=== PATIENT | female | born 1975 | race Caucasian/White ===

== ENCOUNTER 2025-06-12 15:14 | Emergency (ER) | payer MEDICAID, SELFPAY ==
[2025-06-12] VITALS (15 sets, daily range): BP systolic 111–129; BP diastolic 66–91; PULSE 72–99; RESP 16–18; TEMP 36.6–36.9; O2SAT 93–100
--- NOTE | 2025-06-12 15:50 | ED_ITS ---
HPI - Recheck/Abnormal Lab/Rx 2 General: Chief Complaint: Recheck/Abnormal Lab/Rx Stated Complaint: Abnormal Labs Time Seen by Provider: 06/12/25 15:31 Source: patient Mode of arrival: ambulatory Limitations: no limitations History of Present Illness: Patient is a nice 50-year-old female presents to ED today with a complaint of fatigue and being told that her hemoglobin was low. Patient states she has been dealing with issues with anemia since 2017. She states in 2022 she was hospitalized with a hemoglobin of 2.6. She states she had multiple tests performed at that time including EGD/colonoscopy. Patient states following her hospitalization she was doing okay until recently when she began noticing fatigue thus prompting her to establish with a primary care provider. They reportedly did a POC hemoglobin today and it was 6.0 and she was told to come to the emergency department. Apart from the fatigue she has noticed some issues with dizziness with abrupt positional changes. She appears pale upon arrival. Patient is not complaining of any abdominal pain. She has not had any episodes of hematemesis or complaining of dark or tarry stools. She does not feel like her menstrual cycles are overly heavy-she does report they are starting to become irregular and attributes this to the change (menopause). Patient is not sure if she has ever followed up with a real estate agency licensee. She does take iron supplementation at home. complaint: abnormal lab Initial visit (ago): hour(s) Initial visit for: other (fatigue) Returns today for: called because of abnormal lab/test Context: called for abnormal lab result Associated symptoms: other (fatigue) Related Data Allergies Allergy/AdvReac Type Severity Reaction Status Date / Time codeine Allergy Unknown Verified 06/12/25 15:24 Latex, Natural Rubber Allergy Unknown Verified 06/12/25 15:24 Review of Systems 2 Const: Reports: fatigue; Denies: fever(s), chills, body aches or malaise Eyes: Denies: change in vision Card: Denies: chest pain Resp: Denies: dyspnea GI: Denies: abdominal pain, hematochezia or melena : Denies: hematuria Musc: Denies: neck pain, back pain, extremity pain or joint swelling Neuro: Reports: dizziness (with abrupt positional changes); Denies: headache(s), numbness in extremities, weakness in extremities, sensory changes, confusion or behavioral changes Physical Exam 2 Const: COMMON NORMALS: no acute distress, average body habitus, patient oriented x3, no limitations, healthy appearing, alert and well nourished G ENERAL APPEARANCE: cooperative and other (appears pale) O RIENTATION/CONSCIOUSNESS: Yes awake, Yes oriented to person, Yes oriented to place and Yes oriented to time Resp: COMMON NORMALS: normal respiratory effort and clear to auscultation bilaterally AUSCULTATION: clear to auscultation bilaterally Cardio: COMMON NORMALS: regular rate and regular rhythm RATE: regular rate RHYTHM: regular rhythm GI: COMMON NORMALS: Normal to inspection, nondistended, normoactive bowel sounds present, Soft to palpation and non-tender PALPATION: Yes Soft to palpation Neuro: BRITANY COMA SCALE: document GCS findings Britany coma scale eye opening: Spontaneous Britany coma scale verbal response: Orientated Cassel coma scale motor response: Obey commands Britany coma scale total score: 15 COMMON NORMALS: patient oriented x3 and gait normal SENSORIUM/ORIENTATION: Yes alert, Yes oriented to person, Yes oriented to place and Yes oriented to time Skin: COMMON NORMALS: no rashes or lesions noted GENERAL SKIN EXAM: no rashes or lesions noted Course 2 Vital Signs: Vital signs: Vital Signs Temperature 98.4 F 06/12/25 18:30 Pulse Rate 72 06/12/25 18:30 Respiratory Rate 16 06/12/25 18:30 Blood Pressure 118/87 06/12/25 18:30 Pulse Oximetry 99 06/12/25 18:30 Oxygen Delivery Me thod Room Air 06/12/25 18:00 MDM - Recheck/Abnormal Lab/Rx Medical Decision Making Patient is a nice 50-year-old female with chronic history of anemia with hemoglobins down to 2.6 at one point. She states she has not followed up with primary care in quite some time. She recently began feeling fatigued so figured she would establish with a primary care provider and get her hemoglobin checked. This was reportedly found to be 6 today thus prompting them to recommend she come to the emergency department for blood transfusion. Patient here, appears pale, but in no acute distress. Her vital signs are stable. Blood work showing a hemoglobin of 5.9 with indices suggesting microcytic anemia. Patient will be transfused and then allowed discharge. I will have her follow-up with hematology. Return ED precautions discussed. She was not having any signs or symptoms consistent with acute GI blood loss. Medical Records I reviewed the patient's medical records. Lab Data I reviewed the patient's lab results. 06/12/25 15:48 06/12/25 15:48 Laboratory Results WBC 5.12 10^3/uL (3.29-11.43) 06/12/25 15:48 RBC 2.89 10^6/uL (3.85-5.65) L 06/12/25 15:48 Hgb 5.90 g/dL (11.27-16.99) L* 06/12/25 15:48 Hct 20.1 % (36-47) L* 06/12/25 15:48 MCV 69.6 fl (85-98) L 06/12/25 15:48 MCH 20.4 pg (27-33) L 06/12/25 15:48 MCHC 29.4 g/dL (30-55) L 06/12/25 15:48 RDW 20.3 % (12.1-15.1) H 06/12/25 15:48 Plt Count 185 10^3/cmm (157-399) 06/12/25 15:48 MPV 10.5 fL (7.4-10.4) H 06/12/25 15:48 Neut % (Auto) 64.4 % 06/12/25 15:48 Lymph % (Auto) 25.6 % 06/12/25 15:48 Avery % (Auto) 5.5 % 06/12/25 15:48 Eos % (Auto) 3.7 % 06/12/25 15:48 Baso % (Auto) 0.6 % 06/12/25 15:48 Neut # (Auto) 3.30 10^3/uL (1.8-7.7) 06/12/25 15:48 Lymph # (Auto) 1.3 10^3/uL (0.8-4.8) 06/12/25 15:48 Avery # (Auto) 0.3 10^3/uL (0.2-0.9) 06/12/25 15:48 Eos # (Auto) 0.2 10^3/uL (0.0-0.8) 06/12/25 15:48 Baso # (Auto) 0.0 10^3/uL (0.0-0.1) 06/12/25 15:48 Nucleated RBC % (auto) 0 % 06/12/25 15:48 Nucleated RBCs # 0.0 /100WBC 06/12/25 15:48 Sodium 137 mmol/L (136-145) 06/12/25 15:48 Potassium 3.7 mmol/L (3.5-5.1) 06/12/25 15:48 Chloride 102 mmol/L (98-107) 06/12/25 15:48 Carbon Dioxide 24 mmol/L (22-29) 06/12/25 15:48 Anion Gap 14.7 (5-19) 06/12/25 15:48 BUN 13 mg/dL (6-20) 06/12/25 15:48 Creatinine 0.5 mg/dL (0.5-0.9) 06/12/25 15:48 GFR Calculation 131.7 mL/min (90-130) H 06/12/25 15:48 Glucose 96 mg/dL (65-115) 06/12/25 15:48 Calculated Osmolality 284 mOsm/kg (285-295) L 06/12/25 15:48 Calcium 9.3 mg/dL (8.5-10.5) 06/12/25 15:48 Total Bilirubin 0.2 mg/dL (0.15-1.2) 06/12/25 15:48 AST 16 U/L (0-32) 06/12/25 15:48 ALT 21 U/L (0-33) 06/12/25 15:48 Alkaline Phosphatase 76 U/L (35-105) 06/12/25 15:48 Total Protein 6.7 g/dL (6.6-8.7) 06/12/25 15:48 Albumin 4.1 g/dL (3.5-5.2) 06/12/25 15:48 Globulin 2.6 g/dL (1.3-4.6) 06/12/25 15:48 Blood Type A Positive 06/12/25 15:48 Rho(D) Type Rh positive 06/12/25 15:48 Antibody Screen Negative 06/12/25 15:48 Crossmatch See Detail 06/12/25 15:48 No radiology studies performed this visit Discharge Plan Discharge Patient Disposition: Home Clinical Impression: Anemia Qualifiers: Anemia type: unspecified type Qualified Code(s): D64.9 - Anemia, unspecified Condition: Stable Discharge Orders: Discharge ED (Routine); Ordered 06/12/25 Ordered By: Amparo Banks Patient Instructions: Anemia, Anemia (ED), Patient Portal & Amos Instructions Activity Restrictions/Additional Instructions: As we discussed, you were given a transfusion here in the emergency department prior to discharge. We will place a case management referral to get you set up with hematology as an outpatient. You can continue to follow-up with your primary care office. Print Language: Faroese Coding Level of Care Code ED Paraffin Machine Operator for Meenu De Oliveira
[2025-06-12 16:10] LABS: Mean Corpuscular HGB Conc 29.4 g/dL (30-55); Mean Corpuscular Hemoglobin 20.4 pg (27-33); Mean Corpuscular Volume 69.6 fl (85-98); Nucleated Red Blood Cells % 0 %; Platelet Count 185 10^3/cmm (157-399); Red Blood Count 2.89 10^6/uL (3.85-5.65); White Blood Count 5.12 10^3/uL (3.29-11.43)
[2025-06-12 16:19] LABS: Hematocrit 20.1 % (36-47); Hemoglobin 5.90 g/dL (11.27-16.99); Slide Review Slide Review Perform
[2025-06-12 16:29] LABS: Alanine Aminotransferase 21 U/L (0-33); Albumin Level 4.1 g/dL (3.5-5.2); Alkaline Phosphatase 76 U/L (35-105); Anion Gap 14.7 (5-19); Aspartate Amino Transferase 16 U/L (0-32); Blood Urea Nitrogen 13 mg/dL (6-20); Calcium 9.3 mg/dL (8.5-10.5); Carbon Dioxide 24 mmol/L (22-29); Chloride 102 mmol/L (98-107); Globulin 2.6 g/dL (1.3-4.6); Glucose 96 mg/dL (65-115); Osmolality Calculated 284 mOsm/kg (285-295); Potassium 3.7 mmol/L (3.5-5.1); Sodium 137 mmol/L (136-145); Total Protein 6.7 g/dL (6.6-8.7)
--- NOTE | 2025-06-12 18:40 | ECG_ITS ---
[facility] Test Date: 2025-06-12 Pat Name: Quentin Fu Department: Room: Gender: Female Binder Layer: : 1975 Requested By: Amparo Banks Order Number: [id number] Reading MD: Measurements Intervals [place] Rate: 65 P: 33 AR: 141 QRS: 28 QRSD: 89 T: 39 QT: 399 QTc: 416 Interpretive Statements SINUS RHYTHM POSSIBLE RIGHT VENTRICULAR CONDUCTION DELAY [RSR (QR) IN V1/V2] No previous ECG available for comparison [email or web address]
== END 2025-06-12 22:44 | disposition home or self-care (01) ==
PROVIDERS: Emergency Provider Physician Assistant
DX: D64.9 Anemia, unspecified (principal)
CPT/HCPCS: 36415; 36430; 80053; 85025; 86850; 86900; 86920; 93005; 99284; P9016

== ENCOUNTER 2025-06-28 14:37 | Oncology outpatient (recurring) (ONCR) | payer MEDICAID, SELFPAY | END 2025-06-29 23:59 | disposition home or self-care (01) | PROVIDERS: Visit Provider Internal Medicine | DX: D50.9 Iron deficiency anemia, unspecified (principal); Z87.891 Personal history of nicotine dependence | CPT/HCPCS: 99204 ==

== ENCOUNTER 2025-07-26 20:42 | Emergency (ER) | payer MEDICAID, SELFPAY ==
--- OUTSIDE RECORDS SUMMARY | 2025-07-18 14:05 | XMS_ITS | Encounter Summary ---
Author Organization [facility] Address [address] [place] [address] Care Team Providers Care Line Worker Name Role Phone Unavailable Primary Care Provider Unavailabl e Encounter Details Date Type Department Care Team (Latest Contact Info) Description 07/18/2025 2:05 PM BEAN SNIPPER - 07/18/2025 11:59 PM BEAN SNIPPER Hospital Encounter [facility] [employer] Laboratory Services [address] [facility] [address] [place] [address] Segundo Jaime MD [address] [place] [address] Discharge Disposition: Home or Self Care Social History Tobacco Use Types Packs/Day Years Used Date Smoking Tobacco: Former Cigarettes Comments Unknown Sex and Gender Information Value Date Recorded Sex Assigned at Not on file Legal Sex Female 10:59 AM CDT Gender Identity Not on file Sexual Orientation Not on file documented as of this encounter Medications at Time of Discharge collagen, bovine, 100 % Powder Apply to affected area. documented as of this encounter Plan of Treatment Upcoming Encounters Date Type Department Care Team (Late st Contact Info) Description 10/10/2025 11:15 AM BEAN SNIPPER Appointment [facility] [employer] Laboratory Services [address] [place] [address] 10/17/2025 11:20 AM BEAN SNIPPER Office Visit [facility] Cancer and Hematology [place] [address] [facility] [address] [place] [address] Segundo Jaime MD [address] [place] [phone] documented as of this encounter Procedures Procedure Name Priority Date/Time Associated Diagnosis Comments CBC WITH DIFFERENTIAL Stat 07/18/2025 2:09 PM BEAN SNIPPER Chronic anemia COMPREHENSIVE METABOLIC PANEL Stat 07/18/2025 2:09 PM BEAN SNIPPER Chronic anemia documented in this encounter Results * COMPREHENSIVE METABOLIC PANEL (07/18/2025 2:09 PM BEAN SNIPPER) SODIUM 138 136 - 145 mmol/L 07/18/2025 2:41 PM [facility] POTASSIUM 3.7 3.5 - 5.1 mmol/L 07/18/2025 2:41 PM [facility] [place] CHLORIDE 103 98 - 107 mmol/L 07/18/2025 2:41 PM [facility] CO2 25 22 - 29 mmol/L 07/18/2025 2:41 PM [facility] [place] CALCIUM 9.4 8.6 - 10.0 mg/dL 07/18/2025 2:41 PM [facility] [place] BUN 12 6 - 20 mg/dL 07/18/2025 2:41 PM [facility] [place] CREATININE 0.65 0.51 - 0.95 mg/dL 07/18/2025 2:41 PM [facility] [place] GLUCOSE 92 74 - 99 mg/dL 07/18/2025 2:41 PM [facility] [place] TOTAL PROTEIN 6.9 6.4 - 8.3 g/dL 07/18/2025 2:41 PM [facility] [place] ALBUMIN 4.2 3.5 - 5.2 g/dL 07/18/2025 2:41 PM [facility] [place] BILIRUBIN TOTAL 0.3 0.0 - 1.0 mg/dL 07/18/2025 2:41 PM [facility] [place] ALKALINE PHOSPHATASE 75 35 - 104 U/L 07/18/2025 2:41 PM [facility] AST 19 <=33 U/L 07/18/2025 2:41 PM [facility] [place] ALT 20 <=33 U/L 07/18/2025 2:41 PM [facility] GFR >60 >=60 mL/min/1.7 3 sq meter 07/18/2025 2:41 PM [facility] Comment:eGFR calculated with 2020 CKD-EPI equation. Vegetarian diet, extremely high or low muscle mass, and may affect results. Cystatin C with Glomerular Filtration Rate is a suitable alternative for these patients. ANION GAP 10 9 - 20 mmol/L 07/18/2025 2:41 PM [facility] Blood Venipuncture / Unknown 07/18/2025 2:09 PM BEAN SNIPPER 07/18/2025 2:11 PM BEAN SNIPPER Segundo Jaime MD CHEMISTRY ORDERABLES Final Re sult [facility] CLIA# [id number] [address] [place] [address] * (ABNORMAL) CBC WITH DIFFERENTIAL (07/18/2025 2:09 PM BEAN SNIPPER) WBC 5.2 4.5 - 11.0 K/uL 07/18/2025 2:15 PM [facility] RBC 3.74(L) 4.20 - 5.40 M/uL 07/18/2025 2:15 PM [facility] HEMOGLOBIN 8.9(L) 12.0 - 16.0 g/dL 07/18/2025 2:15 PM [facility] HEMATOCRIT 29.6(L) 36.0 - 46.0 % 07/18/2025 2:15 PM [facility] MCV 79.1(L) 82.0 - 100.0 fL 07/18/2025 2:15 PM [facility] MCH 23.8(L) 27.0 - 34.0 pg 07/18/2025 2:15 PM [facility] [place] MCHC 30.1(L) 31.0 - 37.0 g/dL 07/18/2025 2:15 PM [facility] [place] RDW 24.9(H) 11.0 - 14.5 % 07/18/2025 2:15 PM [facility] [place] RDW-STDEV 69.7(H) 37.0 - 54.0 fL 07/18/2025 2:15 PM [facility] [place] PLATELETS 223 140 - 440 K/uL 07/18/2025 2:15 PM [facility] [place] MPV 9.7 8.9 - 12.8 fL 07/18/2025 2:15 PM [facility] [place] NEUTROPHILS 58 42 - 75 % 07/18/2025 2:15 PM [facility] [place] LYMPHOCYTES 32 24 - 44 % 07/18/2025 2:15 PM [facility] [place] MONOCYTES 5 2 - 10 % 07/18/2025 2:15 PM [facility] [place] EOSINOPHILS 4 0 - 7 % 07/18/2025 2:15 PM [facility] [place] BASOPHILS 1 0 - 1 % 07/18/2025 2:15 PM [facility] [place] IMMATURE GRANULOCYTES 1 0 - 2 % 07/18/2025 2:15 PM [facility] [place] NEUTROPHIL ABSOLUTE 2.99 1.40 - 6.50 K/uL 07/18/2025 2:15 PM [facility] [place] LYMPHOCYTE ABSOLUTE 1.63 1.20 - 4.00 K/uL 07/18/2025 2:15 PM BEAN SNIPPER [facility] [place] MONOCYTE ABSOLUTE 0.27 0.10 - 0.60 K/uL 07/18/2025 2:15 PM [facility] [place] EOSINOPHIL ABSOLUTE 0.21 0.00 - 0.70 K/uL 07/18/2025 2:15 PM [facility] [place] BASOPHILS ABSOLUTE 0.04 0.00 - 0.20 K/uL 07/18/2025 2:15 PM BEAN SNIPPER [facility] [place] IMMATURE GRANULOCYTES ABSOLUTE 0.03 0.00 - 0.10 K/uL 07/18/2025 2:15 PM BEAN SNIPPER [facility] [place] Blood Venipuncture / Unknown 07/18/2025 2:09 PM BEAN SNIPPER 07/18/2025 2:11 PM BEAN SNIPPER Segundo Jaime MD HEMATOLOGY ORDERABLES Final R esult [facility] [place] CLIA# [id number] [address] [place] [address] documented in this encounter Visit Diagnoses Diagnosis Chronic anemia Anemia, unspecified documented in this encounter
[2025-07-26] VITALS (34 sets, daily range): BP systolic 109–142; BP diastolic 66–81; PULSE 77–97; RESP 10–20; TEMP 36.6–36.9; O2SAT 97–100; BMI 33.5
--- OUTSIDE RECORDS SUMMARY | 2025-07-26 20:54 | XMS_ITS | Encounter Summary ---
Author Organization [facility] Address [address] [place] [address] Care Team Providers Care Nuclear Powerplant Supervisor Name Role Phone Unavailable Primary Care Provider Unavailabl e Encounter Details Date Type Department Care Team (Late st Contact Info) Description 07/24/2025 External Device Data STL ABSTRACTION Provider, Abstract NO ADDRESS ON FILE Social History Tobacco Use Types Packs/Day Years Used Date Smoking Tobacco: Former Cigarettes Comments Unknown Sex and Gender Information Value Date Recorded Sex Assigned at Not on file Legal Sex Female 10:59 AM CDT Gender Identity Not on file Sexual Orientation Not on file documented as of this encounter Plan of Treatment Upcoming Encounters Date Type Department Care Team (Late st Contact Info) Description 10/10/2025 11:15 AM JACQUARD FIXER Appointment [facility] Laboratory Services [address] [facility] [address] [place] [address] 10/17/2025 11:20 AM JACQUARD FIXER Office Visit [facility] Cancer and Hematology [place] [address] [facility] [address] [place] [address] Segundo Jaime MD [address] [place] [address] documented as of this encounter Visit Diagnoses Not on filedocumented in this encounter
--- OUTSIDE RECORDS SUMMARY | 2025-07-26 20:54 | XMS_ITS | Encounter Summary ---
Author Organization [facility] Address [address] [place] [address] Care Team Providers Care Skip Load Driver Name Role Phone Unavailable Primary Care Provider [...] st Contact Info) Description 10/10/2025 11:15 AM YARN WRAPPER Appointment [facility] Laboratory Services [address] [facility] [address] [place] [address] 10/17/2025 11:20 AM YARN WRAPPER Office Visit [facility] Hematology [place] [address] [facility] [address] [place] [address] Segundo Jaime MD [address] [place] [address] documented as of this encounter Visit Diagnoses Not on filedocumented in this encounter
--- OUTSIDE RECORDS SUMMARY | 2025-07-26 20:54 | XMS_ITS | Encounter Summary ---
Author Organization [facility] Address [address] [place] [address] Care Team Providers Care Account Technician Name Role Phone Unavailable Primary Care Provider Unavailabl e Reason for Referral * Eval and Treat (Routine) - Open Specialty Diagnoses / Procedures Referred By Eulogio cordova Referred To Contact Gastroenterology Diagnoses Other iron deficiency anemia Procedures VA OFFICE/OUTPATIENT ESTABLISHED MOD MDM 30 MIN VA OFFICE/OUTPATIENT NEW MODERATE MDM 45 MINUTES Segundo Jaime MD [address] [facility] [address] [place] [address] Phone: tel: fax: [facility] [address] [facility] [address] [place] [address] Phone: tel: fax: Referral ID Status Reason Start Date Expiration Date Visits Re quested Visits Authorized [id number] Open 07/19/2025 07/19/2026 1 1 RMINATOR TERMITE Encounter Details Date Type Department Care Team (Late st Contact Info) Description 07/19/2025 Orders Only [facility] Cancer and Hematology [place] [address] [facility] [address] [place] [address] Segundo Jaime MD [address] [place] [address] Other iron deficiency anemia (Primary Dx) Social History Tobacco Use Types Packs/Day Years Used Date Smoking Tobacco: Former Cigarettes Comments Unknown Sex and Gender Information Value Date Recorded Sex Assigned at Not on file Legal Sex Female 10:59 AM CDT Gender Identity Not on file Sexual Orientation Not on file documented as of this encounter Progress Notes * Lucia Fernandez RN - 07/19/2025 10:31 AM CST Refer to GI for anemia work up RMINATOR TERMITE documented in this encounter Plan of Treatment Upcoming Encounters Date Type Department Care Team (Late st Contact Info) Description 10/10/2025 11:15 AM EXTERMINATOR TERMITE Appointment [facility] [address] [facility] [address] [place] [address] 10/17/2025 11:20 AM EXTERMINATOR TERMITE Office Visit [facility] Cancer and Hematology [place] [address] [facility] [address] [place] [address] Segundo Jaime MD [address] [place] [address] Scheduled Referrals Name Type Priority Associated Diagnoses Order Schedule AMB REFERRAL TO GASTROENTEROLOGY Outpatient Referral Routine Other iron deficiency anemia Ordered: 07/19/2025 documented as of this encounter Visit Diagnoses Diagnosis Other iron deficiency anemia- Primary documented in this encounter
--- OUTSIDE RECORDS SUMMARY | 2025-07-26 20:54 | XMS_ITS | Encounter Summary ---
Author Organization [facility] Address [address] [place] [address] Care Team Providers Care Hand Frame Surgical Elastic Knitter Name Role Phone Unavailable Primary Care Provider Unavailabl e Encounter Details Date Type Department Care Team (Late Contact Info) Description 07/20/2025 Orders Only [facility] Cancer and Hematology [place] [address] [address] Nazanni Rosales NP [address] [address] Iron deficiency anemia secondary to inadequate dietary iron intake (Primary Dx) Social History Tobacco Use Types [...] st Contact Info) Description 10/10/2025 11:15 AM CORPORATE LOGISTICS MANAGER Appointment [facility] Laboratory Services [address] [facility] [address] [place] [address] 10/17/2025 11:20 AM CORPORATE LOGISTICS MANAGER Office Visit [facility] Cancer and Hematology [place] [address] [facility] [address] [place] [address] Segundo Jaime MD [address] [address] documented as of this encounter Visit Diagnoses Diagnosis Iron deficiency anemia secondary to inadequate dietary iron intake- Primary documented in this encounter
--- OUTSIDE RECORDS SUMMARY | 2025-07-26 20:54 | XMS_ITS | Encounter Summary ---
Author Organization [facility] Address [address] [place] [address] Care Team Providers Care Treating Plant Operator Name Role Phone Unavailable Primary Care Provider [...] st Contact Info) Description 10/10/2025 11:15 AM CRYPTOLOGIST Appointment [facility] Laboratory Services [address] [facility] [address] [place] [address] 10/17/2025 11:20 AM CRYPTOLOGIST Office Visit [facility] Cancer and Hematology [place] [address] [facility] [address] [place] [address] Segundo Jaime MD [address] [place] [address] documented as of this encounter Visit Diagnoses Not on filedocumented in this encounter
--- OUTSIDE RECORDS SUMMARY | 2025-07-26 20:54 | XMS_ITS | Clinical Summary ---
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 Active Active Problems Problem Noted Date Diagnosed Date Iron deficiency anemia secon emely to inadequate dietary iron intake 07/20/2025 Chronic anemia 07/18/2025 Encounters Date Type Department Care Team Description 07/24/2025 External Device Data STL ABSTRACTION Provider, Abstract 07/24/2025 External Device Data STL ABSTRACTION Provider, Abstract 07/24/2025 External Device Data STL ABSTRACTION Provider, Abstract 07/20/2025 Orders Only [facility] [place] [address] [address] Nazanin Rosales NP Iron deficiency anemia secondary to inadequate dietary iron intake (Primary Dx) 07/19/2025 Orders Only [facility] [place] [address] [address] Segundo Jaime MD Other iron deficiency anemia (Primary Dx) 07/18/2025 3:10 PM ANIMAL SCIENTIST Office Visit [facility] [place] [address] [address] Segundo Jaime MD Chronic anemia (Primary Dx); Other iron deficiency anemia 07/18/2025 2:05 PM ANIMAL SCIENTIST - 07/18/2025 11:59 PM ANIMAL SCIENTIST Hospital Encounter [facility] [address] [place] [address] Segundo Jaime MD Discharge Disposition: Home or Self Care 07/10/2025 Orders Only [facility] [place] [address] [facility] [place] [address] Segundo Jaime MD Chronic anemia (Primary Dx) 06/25/2025 Abstract [facility] [place] [address] [facility] [place] [address] Provider, Abstract from Last 3 Months Social History Tobacco Use Types Packs/Day Years Used Date Smoking Tobacco: Former Cigarettes Tobacco Cessation:Counseling Given: Not Answered Comments Unknown Sex and Gender Information Value Date Recorded Sex Assigned at Not on file Legal Sex Female 10:59 AM CDT Gender Identity Not on file Sexual Orientation Not on file Last Filed Vital Signs Vital Sign Reading Time Taken Comments Blood Pressure 108/62 07/18/2025 2:52 PM ANIMAL SCIENTIST Pulse 76 07/18/2025 2:52 PM ANIMAL SCIENTIST Temperature 36.4 C (97.5 F) 07/18/2025 2:52 PM ANIMAL SCIENTIST Respiratory Rate - - Oxygen Saturation 98% 07/18/2025 2:52 PM ANIMAL SCIENTIST Inhaled Oxygen Concentration - - Weight 78 kg (172 lb) 07/18/2025 2:52 PM ANIMAL SCIENTIST Height 166.4 cm (5' 5.5 ) 07/18/2025 2:52 PM ANIMAL SCIENTIST Body Mass Index 28.19 07/18/2025 2:52 PM ANIMAL SCIENTIST Plan of Treatment Upcoming Encounters Date Type Department Care Team (Late st Contact Info) Description 10/10/2025 11:15 AM ANIMAL SCIENTIST Appointment [facility] [address] [place] [address] 10/17/2025 11:20 AM ANIMAL SCIENTIST Office Visit [facility] [place] [address] [facility] 2 [place] [address] Segundo Jaime MD [address] [place] [address] Health Maintenance Due Date Last Done Comments Pre-Diabetes and Diabetes Screening 1975 DTAP/TDAP/TD VACCINES (1 - Tdap) 01/27/1996 HEPATITIS B VACCINES (1 of 3 - 19+ 3-dose series) 12/30 Preventative Visit-Managed Medicaid 01/27/1996 HPV/Cotest (21-29) 1998 CERVICAL CANCER SCREENING 2007 HPV/Cotest (30-65) 2007 PAP SMEAR 2007 BREAST CANCER SCREENING 2017 COLORECTAL SCREENING 2022 Colorectal Cancer Screening 2022 FIT-DNA Q 3 years 2022 FIT/FOBT Q 1 year 2022 Flex Sig/CT Colonography Q 5 years 2022 INFLUENZA VACCINE (#1) 2025 Procedures Procedure Name Priority Date/Time Associated Diagnosis Comments RETICULOCYTES Routine 07/18/2025 4:23 PM ANIMAL SCIENTIST Chronic anemia IRON, TIBC, AND PERCENT SATURATION Routine 07/18/2025 4:23 PM ANIMAL SCIENTIST Chronic anemia VITAMIN B12 LEVEL Routine 07/18/2025 4:2 2 PM ANIMAL SCIENTIST Chronic anemia FERRITIN Routine 07/18/2025 4:22 PM ANIMAL SCIENTIST Chronic anemia IRON, TIBC, AND PERCENT SATURATION Routine 07/18/2025 4:22 PM ANIMAL SCIENTIST Chronic anemia FOLATE, SERUM Routine 07/18/2025 4:22 PM ANIMAL SCIENTIST Chronic anemia COMPREHENSIVE METABOLIC PANEL Stat 07/18/2025 2:09 PM ANIMAL SCIENTIST Chronic anemia CBC WITH DIFFERENTIAL Stat 07/18/2025 2:09 PM ANIMAL SCIENTIST Chronic anemia from Last 3 Months Results * (ABNORMAL) IRON, TIBC, AND PERCENT SATURATION (07/18/2025 4:23 PM ANIMAL SCIENTIST) Only the most recent of2 resultswithin the time period is included. [facility] IRON 11(L) 40 - 190 mcg/dL [facility] TIBC 361 250 - 450 mcg/dL (calc) [facility] IRON % SATURATION 3(L) 16 - 45 % (calc) [facility] Comment: FASTING:NO FASTING: NO Test Performed at: [facility] [address] [place] [address] Kirsty Alejandro MD Blood 07/18/2025 4:23 PM ANIMAL SCIENTIST 07/18/2025 4:23 PM ANIMAL SCIENTIST Segundo Jaime MD CHEMISTRY ORDERABLES Final Re sult Performing Organization Address City/[facility]/ZIP Co de Phone Number [facility] [phone] [facility] [address] [place], [place] [address], [place] [address] * RETICULOCYTES (07/18/2025 4:23 PM ANIMAL SCIENTIST) [facility] RETICULOCYTES 2.0 % [facility] RETICULOCYTE, ABSOLUTE 73,800 20,000 - 80,000 cells/uL [facility] Comment: FASTING:NO FASTING: NO Test Performed at: [facility] [address] [facility] [place] [address] Kirsty Alejandro MD Blood 07/18/2025 4:23 PM ANIMAL SCIENTIST 07/18/2025 4:23 PM ANIMAL SCIENTIST Segundo Jaime MD HEMATOLOGY ORDERABLES Final R esult Performing Organization Address City/[facility]/ZIP Co de Phone Number [facility] [phone] [facility] [address] [place] [address] * FOLATE, SERUM (07/18/2025 4:22 PM ANIMAL SCIENTIST) [facility] FOLATE, SERUM >24.0 ng/mL [facility] Comment: Reference Range Low: <3.4 Borderline: 3.4-5.4 Normal: >5.4 Test Performed at: [facility] [place] [address] Kirsty Alejandro MD Blood 07/18/2025 4:22 PM ANIMAL SCIENTIST 07/18/2025 4:23 PM ANIMAL SCIENTIST Segundo Jaime MD CHEMISTRY ORDERABLES Final Re sult [facility] [phone] [facility] [address] * (ABNORMAL) FERRITIN (07/18/2025 4:22 PM ANIMAL SCIENTIST) [facility] FERRITIN 11(L) 16 - 232 ng/mL [facility] Comment: Test Performed at: [facility] [address] Kirsty Alejandro MD Blood 07/18/2025 4:22 PM ANIMAL SCIENTIST 07/18/2025 4:23 PM ANIMAL SCIENTIST Segundo Jaime MD CHEMISTRY ORDERABLES Final Re sult [facility] [phone] [facility] [address] * VITAMIN B12 LEVEL (07/18/2025 4:22 PM ANIMAL SCIENTIST) [facility] VITAMIN B12 724 200 - 1100 pg/mL [facility] Comment: FASTING:NO FASTING: NO Test Performed at: [facility] [place] [address] Kirsty Alejandro MD Blood 07/18/2025 4:22 PM ANIMAL SCIENTIST 07/18/2025 4:23 PM ANIMAL SCIENTIST us Segundo Jaime MD CHEMISTRY ORDERABLES Final Re sult [facility] [phone] [facility] [address] [place] [address] * (ABNORMAL) CBC WITH DIFFERENTIAL (07/18/2025 2:09 PM ANIMAL SCIENTIST) WBC 5.2 4.5 - 11.0 K/uL 07/18/2025 2:15 PM [facility] RBC 3.74(L) 4.20 - 5.40 M/uL 07/18/2025 2:15 PM [facility] HEMOGLOBIN 8.9(L) 12.0 - 16.0 g/dL 07/18/2025 2:15 PM [facility] HEMATOCRIT 29.6(L) 36.0 - 46.0 % 07/18/2025 2:15 PM [facility] MCV 79.1(L) 82.0 - 100.0 fL 07/18/2025 2:15 PM [facility] MCH 23.8(L) 27.0 - 34.0 pg 07/18/2025 2:15 PM [facility] MCHC 30.1(L) 31.0 - 37.0 g/dL 07/18/2025 2:15 PM [facility] RDW 24.9(H) 11.0 - 14.5 % 07/18/2025 2:15 PM [facility] RDW-STDEV 69.7(H) 37.0 - 54.0 fL 07/18/2025 2:15 PM [facility] PLATELETS 223 140 - 440 K/uL 07/18/2025 2:15 PM [facility] MPV 9.7 8.9 - 12.8 fL 07/18/2025 2:15 PM [facility] NEUTROPHILS 58 42 - 75 % 07/18/2025 2:15 PM [facility] LYMPHOCYTES 32 24 - 44 % 07/18/2025 2:15 PM [facility] MONOCYTES 5 2 - 10 % 07/18/2025 2:15 PM [facility] EOSINOPHILS 4 0 - 7 % 07/18/2025 2:15 PM [facility] BASOPHILS 1 0 - 1 % 07/18/2025 2:15 PM [facility] IMMATURE GRANULOCYTES 1 0 - 2 % 07/18/2025 2:15 PM [facility] NEUTROPHIL ABSOLUTE 2.99 1.40 - 6.50 K/uL 07/18/2025 2:15 PM [facility] LYMPHOCYTE ABSOLUTE 1.63 1.20 - 4.00 K/uL 07/18/2025 2:15 PM [facility] [place] MONOCYTE ABSOLUTE 0.27 0.10 - 0.60 K/uL 07/18/2025 2:15 PM [facility] EOSINOPHIL ABSOLUTE 0.21 0.00 - 0.70 K/uL 07/18/2025 2:15 PM [facility] [place] BASOPHILS ABSOLUTE 0.04 0.00 - 0.20 K/uL 07/18/2025 2:15 PM [facility] [place] IMMATURE GRANULOCYTES ABSOLUTE 0.03 0.00 - 0.10 K/uL 07/18/2025 2:15 PM [facility] Blood Venipuncture / Unknown 07/18/2025 2:09 PM ANIMAL SCIENTIST 07/18/2025 2:11 PM ANIMAL SCIENTIST us Segundo Jaime MD HEMATOLOGY ORDERABLES Final R esult [facility] [place] CLIA# [id number] [address] [place] [address] * COMPREHENSIVE METABOLIC PANEL (07/18/2025 2:09 PM ANIMAL SCIENTIST) SODIUM 138 136 - 145 mmol/L 07/18/2025 2:41 PM [facility] [place] POTASSIUM 3.7 3.5 - 5.1 mmol/L 07/18/2025 2:41 PM [facility] [place] CHLORIDE 103 98 - 107 mmol/L 07/18/2025 2:41 PM [facility] CO2 25 22 - 29 mmol/L 07/18/2025 2:41 PM [facility] [place] CALCIUM 9.4 8.6 - 10.0 mg/dL 07/18/2025 2:41 PM [facility] [place] BUN 12 6 - 20 mg/dL 07/18/2025 2:41 PM [facility] [place] CREATININE 0.65 0.51 - 0.95 mg/dL 07/18/2025 2:41 PM [facility] [place] GLUCOSE 92 74 - 99 mg/dL 07/18/2025 2:41 PM [facility] [place] TOTAL PROTEIN 6.9 6.4 - 8.3 g/dL 07/18/2025 2:41 PM [facility] [place] ALBUMIN 4.2 3.5 - 5.2 g/dL 07/18/2025 2:41 PM [facility] [place] BILIRUBIN TOTAL 0.3 0.0 - 1.0 mg/dL 07/18/2025 2:41 PM [facility] [place] ALKALINE PHOSPHATASE 75 35 - 104 U/L 07/18/2025 2:41 PM [facility] AST 19 <=33 U/L 07/18/2025 2:41 PM [facility] ALT 20 <=33 U/L 07/18/2025 2:41 PM [facility] GFR >60 >=60 mL/min/1.7 3 sq meter 07/18/2025 2:41 PM [facility] Comment:eGFR calculated with 2020 CKD-EPI equation. Vegetarian diet, extremely high or low muscle mass, and may affect results. Cystatin C with Glomerular Filtration Rate is a suitable alternative for these patients. ANION GAP 10 9 - 20 mmol/L 07/18/2025 2:41 PM [facility] Blood Venipuncture / Unknown 07/18/2025 2:09 PM ANIMAL SCIENTIST 07/18/2025 2:11 PM ANIMAL SCIENTIST Segundo Jaime MD CHEMISTRY ORDERABLES Final Re sult [facility] [place] CLIA# [id number] [address] [place] [address] from Last 3 Months Insurance MEDICAID [place]
--- NOTE | 2025-07-26 21:09 | W.ED.GENADLT ---
HPI - General Adult General: Chief complaint: Recheck/Abnormal Lab/Rx Stated complaint: hemoglobin, iron dropped. heart racing Time Seen by Provider: 07/26/25 21:09 Source: patient Mode of arrival: ambulatory Limitations: no limitations History of Present Illness: Patient is a 50-year-old female known to me from her previous encounter here for concerns of low hemoglobin. Patient has a longstanding history of chronic anemia. Please see previous documentation as well as hematology summary for further detail. Following my last visit with patient last month, she subsequently followed up with Dr. Merlos here at [facility]. She was unaware that her PCP had also had placed a hematology referral in [place] so she also went to that appointment. States she was told by both hematologists that they feel this is iron deficiency anemia and recommending oral iron supplementation and just want to recheck after that . She has had more extensive workups in [place] in the past. She has had normal EGDs/colonoscopies. Patient states her fluorescent solution mixer checked her hemoglobin last week in office and it was over 8 but she feels much lower than this today. She appears pale. She feels extremely fatigued. She is complaining of chest palpitations and feeling short of breath. Onset (ago): day(s) Severity: severe Relieving factors: none Exacerbating factors: other (low hemoglobin) Associated symptoms: Reports dyspnea and palpitations; Deny chest pain, headache(s), nausea, rash, syncope or vomiting Treatments prior to arrival: none Related Data Home Medications ?Medication ?Instructions ?Recorded ?Confirmed cholecalciferol (vitamin D3) 50 50 mcg PO DAILY PRN 06/28/25 06/28/25 mcg/drop (2,000 unit/drop) oral drops ferrous fum-vit C-vit B12-FA 200 1 cap PO DAILY 06/28/25 06/28/25 mg-250 mg-0.01 mg-1 mg capsule mv-mn-yeast 499.99 mg-astragal sc PO DAILY 06/28/25 06/28/25 249.99 gd-vknlkn-ofox/scoop oral powder unithiol (bulk) 97 % powder ea miscellaneous DAILY 06/28/25 06/28/25 (Dimercaptopropanesulfonate Sod) Previous Rx's ?Medication ?Instructions ?Recorded Ferrasorb 2 cap PO BID #120 caps 06/28/25 Allergies Allergy/AdvReac Type Severity Reaction Status Date / Time codeine Allergy Unknown Verified 07/26/25 21:02 Latex, Natural Rubber Allergy Unknown Verified 07/26/25 21:02 Review of Systems Const: Reports: fatigue; Denies: fever(s), chills or body aches Eyes: Denies: change in vision Card: Reports: palpitations, lightheadedness, pre-syncope and dyspnea on exertion; Denies: chest pain, edema, swelling of feet/ankles, syncope, orthopnea, leg pain with exertion or acrocyanosis Resp: Reports: dyspnea; Denies: productive cough, non-productive cough, wheezing, pain on inspiration, hemoptysis or chest congestion GI: Denies: nausea, vomiting, hematemesis, hematochezia or melena : Denies: flank pain, dysuria or hematuria Musc: Denies: neck pain, back pain, extremity pain, extremity swelling, joint pain or joint swelling Skin/Breast: Denies: rash Neuro: Denies: headache(s), numbness in extremities, weakness in extremities or sensory changes PFS ED PFSH: Social History Smoking and tobacco/nicotine status: former use of tobacco/nicotine Physical Exam Const: COMMON NORMALS: patient oriented x3, no limitations and alert GENERAL APPEARANCE: cooperative and other (pale) ORIENTATION/CONSCIOUSNESS: Yes awake, Yes oriented to person, Yes oriented to place and Yes oriented to time Resp: COMMON NORMALS: normal respiratory effort and clear to auscultation bilaterally AUSCULTATION: clear to auscultation bilaterally OTHER: winded just talking Cardio: COMMON NORMALS: regular rate and regular rhythm RATE: regular rate RHYTHM: regular rhythm GI: COMMON NORMALS: Normal to inspection, nondistended, normoactive bowel sounds present, Soft to palpation, non-tender, No hepatosplenomegaly present and no masses PALPATION: Yes Soft to palpation and Yes No hepatosplenomegaly present : COMMON NORMALS: Yes no CVA tenderness BLADDER/KIDNEY EXAM: Yes no CVA tenderness Back/Pelvis: COMMON NORMALS: no CVA tenderness, thoracic and lumbar spine normal to inspection and no thoracic nor lumbar tenderness Extremity: GENERAL: Yes normal exam except as noted Neuro: BRITANY COMA SCALE: document GCS findings Britany coma scale eye opening: Spontaneous [place] coma scale verbal response: Orientated Britany coma scale motor response: Obey commands Britany coma scale total score: 15 COMMON NORMALS: patient oriented x3, moves all extremities, no focal motor deficits and no sensory deficits noted SENSORIUM/ORIENTATION: Yes alert, Yes oriented to person, Yes oriented to place and Yes oriented to time Skin: COMMON NORMALS: no rashes or lesions noted GENERAL SKIN EXAM: no rashes or lesions noted Course Vital Signs: Vital signs: Vital Signs Temperature 98.4 F 07/26/25 20:55 Pulse Rate 94 07/26/25 22:30 Respiratory Rate 16 07/26/25 22:30 Blood Pressure 114/74 07/26/25 22:30 Pulse Oximetry 100 07/26/25 22:30 Oxygen Delivery Me thod Room Air 07/26/25 21:32 MDM - General Adult Medical Decision Making Patient is a very nice 50-year-old female here feeling like her hemoglobin is low. She has felt extremely fatigued and pale and short of breath. She has a longstanding history of anemia and just within the last month has seen 2 hematologists for workup/evaluation. She has had further evaluation in [place] previously. She has reportedly had normal EGD/colonoscopies. She is not complaining of any abdominal pain. No hematemesis or black/tarry stools. Here her vital signs are stable. She was noted to have a hemoglobin of 5.6. Will transfuse patient 2 units PRBCs and allow discharge. Did recommend she speak to PCP/hematology about going forward trying to have these ordered as an outpatient to avoid the ED. She is agreeable to this. Certainly today this was not feasible given the . Medical Records I reviewed the patient's medical records. Lab Data I reviewed the patient's lab results. 07/26/25 21:25 07/26/25 21:25 Radiology Impressions Chest X-Ray 07/26/25 21:18 IMPRESSION: No acute findings. Laboratory Results WBC 5.23 10^3/uL (3.29-11.43) 07/26/25 21: RBC 2.40 10^6/uL (3.85-5.65) L 07/26/25 21: Hgb 5.60 g/dL (11.27-16.99) L* 07/26/25 21: Hct 19.4 % (36-47) L* 07/26/25: MCV 80.8 fl (85-98) L 07/26/25: MCH 23.3 pg (27-33) L 07/26/25: MCHC 28.9 g/dL (30-55) L 07/26/25: RDW 23.9 % (12.1-15.1) H 07/26/25: Plt Count 272 10^3/cmm (157-399) 07/26/25: MPV 10.6 fL (7.4-10.4) H 07/26/25: Neut % (Auto) 55.4 % 07/26/25: Lymph % (Auto) 35.0 % 07/26/25: [place] % (Auto) 5.7 % 07/26/25: Eos % (Auto) 3.1 % 07/26/25: Baso % (Auto) 0.6 % 07/26/25 Neut # (Auto) 2.90 10^3/uL (1.8-7.7) 07/26/25: Lymph # (Auto) 1.8 10^3/uL (0.8-4.8) 07/26/25: [place] # (Auto) 0.3 10^3/uL (0.2-0.9) 07/26/25: Eos # (Auto) 0.2 10^3/uL (0.0-0.8) 07/26/25: Baso # (Auto) 0.0 10^3/uL (0.0-0.1) 07/26/25: Nucleated RBC % (auto) 0 % 07/26/25: Nucleated RBCs # 0.0 /100WBC 07/26/25: Sodium 139 mmol/L (136-145) 07/26/25: Potassium 4.6 mmol/L (3.5-5.1) 07/26/25: Chloride 106 mmol/L (98-107) 07/26/25: Carbon Dioxide 22 mmol/L (22-29) 07/26/25: Anion Gap 15.6 (5-19) 07/26/25 21: BUN 9 mg/dL (6-20) 07/26/25 21: Creatinine 1.0 mg/dL (0.5-0.9) H 07/26/25: GFR Calculation 59.2 mL/min (90-130) L 07/26/25 21: Glucose 104 mg/dL (65-115) 07/26/25 21: Calculated Osmolality 287 mOsm/kg (285-295) 07/26/25: Calcium 9.6 mg/dL (8.5-10.5) 07/26/25: Total Bilirubin 0.2 mg/dL (0.15-1.2) 07/26/25: AST 15 U/L (0-32) 07/26/25: ALT 16 U/L (0-33) 07/26/25: Alkaline Phosphatase 72 U/L (35-105) 07/26/25: Troponin T Baseline < 6 ng/L (0-10) 07/26/25 21: NT-Pro-B Natriuret Pep 64 pg/mL (0-125) 07/26/25 21: Total Protein 6.2 g/dL (6.6-8.7) L 07/26/25: Albumin 4.2 g/dL (3.5-5.2) 07/26/25: Globulin 2.0 g/dL (1.3-4.6) 07/26/25 21:25 Blood Type A Positive 07/26/25 21:22 Rho(D) Type Rh positive 07/26/25 21:22 Antibody Screen Negative 07/26/25 21:22 Crossmatch See Detail 07/26/25 21:22 All radiology interpretation(s) finalized by discharge Discharge Plan Discharge Patient Disposition: Home Clinical Impression: Iron deficiency anemia, unspecified iron deficiency anemia type Condition: Stable Prescriptions: No Action ferrous fum-vit C-vit B12-FA 200-250-0.01-1 mg capsule 1 cap PO DAILY Dimercaptopropanesulfonate Sod 97 % powder miscellaneous DAILY cholecalciferol (vitamin D3) 50 mcg/drop (2, 000 unit/drop) drops 50 mcg PO DAILY PRN pb-zp-ujehb-ceghwu-axivvl-ihuy 499.99-249.99 mg/scoop powder PO DAILY Ferrasorb 36 mg capsule 2 cap PO BID Qty: 120 0RF Discharge Orders: Discharge ED (Routine); Ordered 07/26/25 Ordered By: Amparo Banks Patient Instructions: Patient Portal & Amos Instructions Activity Restrictions/Additional Instructions: Continue plan to follow up with primary care and hematology as an outpatient. As we discussed, you might speak to them about ambulatory orders (outpatient orders) for blood transfusion when hemoglobin gets low to avoid having to keep coming back to the emergency department. You are welcome to return here for any further concerns you may have. I hope you get to feeling better soon. Print Language: Tristanian Coding Level of Care Code ED Power Operator for Meenu De Oliveira
--- NOTE | 2025-07-26 21:18 | XRR_ITS ---
PROCEDURE INFORMATION: Exam: XR Chest Exam date and time: 07/26/2025 10:01 PM Age: 50 years old Clinical indication: Pain; Shortness of breath; Chest pressure; Additional info: Chest pain/sob TECHNIQUE: Imaging protocol: Radiologic exam of the chest. Views: 1 view. COMPARISON: No relevant prior studies available. FINDINGS: Lungs: Unremarkable. No consolidation. Pleural spaces: Unremarkable. No pleural effusion. No pneumothorax. Heart/Mediastinum: Unremarkable. No cardiomegaly. Bones/joints: Unremarkable. XR/XR chest 1V portable [id number] IMPRESSION: No acute findings.
[2025-07-26 21:40] LABS: Mean Corpuscular HGB Conc 28.9 g/dL (30-55); Mean Corpuscular Hemoglobin 23.3 pg (27-33); Mean Corpuscular Volume 80.8 fl (85-98); Nucleated Red Blood Cells % 0 %; Platelet Count 272 10^3/cmm (157-399); Red Blood Count 2.40 10^6/uL (3.85-5.65); White Blood Count 5.23 10^3/uL (3.29-11.43)
--- NOTE | 2025-07-26 21:48 | ECG_ITS ---
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 Measurements Intervals [place] Rate: 85 P: 54 [place]: 199 QRS: 48 QRSD: 89 T: 20 QT: 362 QTc: 431 Interpretive Statements SINUS RHYTHM Compared to ECG 06/12/2025 15:34:14 No significant changes Electronically Signed On 07-28-2025 17:50:40 COUNSELOR MANAGER by Brandon Pizano M.D. [email or web address]
[2025-07-26 22:01] LABS: Hematocrit 19.4 % (36-47); Hemoglobin 5.60 g/dL (11.27-16.99)
[2025-07-26 22:04] LABS: Troponin(5th) Baseline < 6 ng/L (0-10)
[2025-07-26 22:13] LABS: Alanine Aminotransferase 16 U/L (0-33); Albumin Level 4.2 g/dL (3.5-5.2); Alkaline Phosphatase 72 U/L (35-105); Anion Gap 15.6 (5-19); Aspartate Amino Transferase 15 U/L (0-32); Blood Urea Nitrogen 9 mg/dL (6-20); Calcium 9.6 mg/dL (8.5-10.5); Carbon Dioxide 22 mmol/L (22-29); Chloride 106 mmol/L (98-107); Creatinine Clr Calc Pharmacy 63.5453; Globulin 2.0 g/dL (1.3-4.6); Glucose 104 mg/dL (65-115); NT Pro B Type Natriuretic Pept 64 pg/mL (0-125); Osmolality Calculated 287 mOsm/kg (285-295); Potassium 4.6 mmol/L (3.5-5.1); Sodium 139 mmol/L (136-145); Total Protein 6.2 g/dL (6.6-8.7)
[2025-07-27] VITALS (67 sets, daily range): BP systolic 93–126; BP diastolic 55–76; PULSE 71–116; RESP 12–26; TEMP 36.5–36.8; O2SAT 96–100
== END 2025-07-27 08:07 | disposition home or self-care (01) ==
PROVIDERS: Emergency Provider Physician Assistant
DX: D50.9 Iron deficiency anemia, unspecified (principal); Z87.891 Personal history of nicotine dependence
CPT/HCPCS: 36415; 36430; 71045; 80053; 83880; 84484; 85025; 86850; 86900; 86920; 93005; 99285; P9016